=== PATIENT | female | born 1980 | race Caucasian/White ===

== ENCOUNTER 2016-09-05 12:49 | Emergency (ER) | payer OTHER ==
[~2016-09-05] VITALS: Ht 157.5 cm; Wt 68.0 kg
[~2016-09-05 12:49] MED LIST: NORE1TAB93 PO; PHEN37.54 PO
--- NOTE | 2016-09-05 13:10 | NUR ---
AT BEDSIDE PERFORMING MSE
[2016-09-05] MEDS ORDERED: METOCLOPRAMIDE HCL 10 MG/2 ML VIAL ONE (13:35)
[2016-09-05] MEDS: IV NORMAL SALINE 1000 ML BAG IV ONE (13:35)
[2016-09-05] MEDS: METOCLOPRAMIDE HCL 10 MG/2 ML VIAL IV ONE (13:36)
[2016-09-05] MEDS ORDERED: IOHEXOL 350 100 ML INFUS..BTL ONE (13:38)
[2016-09-05] MEDS ORDERED: IV NORMAL SALINE 250 ML IV ONE (13:38)
[2016-09-05 13:41] LABS: BASOPHILS # (AUTO) 0.1 K/uL (0.0-8.0); BASOPHILS % (AUTO) 0.8 % (0.0-2.0); EOSINOPHILS # (AUTO) 0.1 K/uL (0.0-0.7); EOSINOPHILS % (AUTO) 1.5 % (0.0-7.0); HEMATOCRIT 40.7 % (37-47); HEMOGLOBIN 13.7 G/DL (12.0-16.0); LYMPHOCYTES # (AUTO) 2.3 K/UL (0.8-4.8); LYMPHOCYTES % (AUTO) 35.4 % (20.5-51.5); MEAN CORPUSCULAR HEMOGLOBIN 31.1 UUG (27.0-31.0); MEAN CORPUSCULAR HGB CONC 34 g/dL (32.0-37.0); MEAN CORPUSCULAR VOLUME 92.4 FL (81.0-99.0); MONOCYTES # (AUTO) 0.5 K/UL (0.1-1.30); MONOCYTES % (AUTO) 7.3 % (0.0-11.0); NEUTROPHILS # (AUTO) 3.6 K/UL (1.8-8.9); PLATELET COUNT (AUTO) 335 K/UL (150-450); RED BLOOD CELL COUNT(AUTO) 4.41 MIL/UL (4.2-5.4); WHITE BLOOD COUNT (AUTO) 6.6 K/UL (4.0-11.2)
--- NOTE | 2016-09-05 13:45 | NUR ---
CONSENT FOR CTA CAROTID/BRAIN OBTAINED. PT VERBALIZED UNDERSTANDING
[2016-09-05 13:47] LABS: CREATININE 0.6 mg/dL (0.6-1.3); POTASSIUM 3.8 mmol/L (3.5-5.1)
--- NOTE | 2016-09-05 14:26 | NUR ---
PT WENT TO CT IN STABLE CONDITION. NAD NOTED.
[2016-09-05] MEDS: KETOROLAC TROMETHAMINE 30 MG INJ IVP ONE (15:07)
--- NOTE | 2016-09-05 15:12 | NUR ---
CONSENT OBTAINED BY MD GARCES REGARDING LUMBAR PUNCTURE. RN WITNESSED CONSENT
[2016-09-05] MEDS ORDERED: KETOROLAC TROMETHAMINE 30 MG INJ ONE (15:16)
--- NOTE | 2016-09-05 15:39 | NUR ---
SPINAL FLUID COLLECTED BY MD GARCES AND SENT TO LAB
--- NOTE | 2016-09-05 16:23 | NUR ---
1620 1st contact with patient- ORALIA DOUGHERTY, respiration is easy & for discharge now per Dr Ding. [email or web address]. Catheter intact and site benign. Pressure and 4x4 gauze applied to site. No bleeding noted. Patient discharged to home in stable conditon. Written and verbal after care instructions given to patient. Patient verbalizes understanding of instructions.
[2016-09-05 16:38] LABS: CSF GLUCOSE 56 mg/dL (40-70); CSF PROTEIN 31 mg/dL (15-45)
== END 2016-09-05 16:25 | disposition home or self-care (01) ==
LOC: ER 12:49
DX: G43.909 Migraine, unspecified, not intractable, without status migrainosus (principal); Z91.012 Allergy to eggs; Z88.8 Allergy status to other drugs, medicaments and biological substances
CPT/HCPCS: 36415; 70030-TC; 70496; 84157; 84703; 85025; 85730; 87328; 89051; A4663; J1885; J2765; J7030; J7050; Q9967